=== PATIENT | female | born 1955 | race American Indian/Alaskan Native ===

== ENCOUNTER 2017-09-26 00:50 | Observation (INO) | payer MEDICAID, OTHER ==
--- NOTE | 2017-09-26 00:51 | EDM.PDOC ---
ED HPI GENERAL MEDICAL PROBLEM - General Chief Complaint: General Stated Complaint: IN BY AMBULANCE Time Seen by Provider: 09/26/17 00:49 Source of Information: Reports: Patient, EMS History Limitations: Reports: No Limitations - History of Present Illness INITIAL COMMENTS - FREE TEXT/NARRATIVE: pt states onset left shoulder pain @ 7pm not going away, called EMS gave NTG pain decreased. Left Shoulder Pain Score (Numeric/FACES): 7 - Related Data Allergies Allergy/AdvReac Type Severity Reaction Status Date / Time aspirin Allergy Hives Verified 09/26/17 00:55 codeine Allergy Difficulty Verified 09/26/17 00:55 Swallowing erythromycin base Allergy Hives Verified 09/26/17 00:55 ketorolac tromethamine Allergy Difficulty Verified 09/26/17 00:55 [From Toradol] Swallowing latex Allergy Blisters Verified 09/26/17 00:55 morphine Allergy Difficulty Verified 09/26/17 00:55 Swallowing nabumetone [From Relafen] Allergy Cannot Verified 09/26/17 00:55 Remember sumatriptan [From Imitrex] Allergy Difficulty Verified 09/26/17 00:55 Swallowing sumatriptan succinate Allergy Difficulty Verified 09/26/17 00:55 [From Imitrex] Swallowing Home Meds: Home Meds Multivitamin with Minerals [Multiple Vitamin] 1 tab PO DAILY 10/19/15 [History] atorvaSTATin [Lipitor] 1 tab PO DAILY 10/19/15 [History] traMADol HCl [Ultram] 50 mg PO BID PRN 10/19/15 [History] ALPRAZolam [Xanax] 1 tab PO ASDIRECTED PRN 09/26/17 [History] Past Medical History HEENT History: Reports: Impaired Vision, Other (See Below) Other HEENT History: DENTAL ABSCESS Cardiovascular History: Reports: High Cholesterol, Stents, Other (See Below) Other Cardiovascular History: CAROTID STENTS PLACED Respiratory History: Reports: None Gastrointestinal History: Reports: Gastritis Genitourinary History: Reports: None [employer]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: Musculoskeletal History: Reports: Arthritis, Back Pain, Chronic, Fibromyalgia Other Musculoskeletal History: "SPINAL SPURS" Neurological History: Reports: Migraines, TIA Other Neuro History: 2013 TIA Psychiatric History: Reports: None Endocrine/Metabolic History: Reports: None Other Hematologic History: none Immunologic History: Reports: None Oncologic (Cancer) History: Reports: None Dermatologic History: Reports: Eczema Other Dermatologic History: none - Infectious Disease History Infectious Disease History: Reports: None - Past Surgical History HEENT Surgical History: Reports: Oral Surgery, Other (See Below) Cardiovascular Surgical History: Reports: Carotid Stents GI Surgical History: Reports: Appendectomy, Hernia, Abdominal Female Surgical History: Reports: D&C, Hysterectomy, Salpingo-Oophorectomy, Other (See Below) Musculoskeletal Surgical History: Reports: Shoulder Surgery Social & Family History - Family History Cardiac: Reports: CAD, High Cholesterol, Hypertension : Reports: Nephritis (son) Endocrine/Metabolic: Reports: Diabetes, type II - Tobacco Use Smoking Status *Q: Current Every Day Smoker Years of Tobacco use: 28 Packs/Tins Daily: 0.5 - Caffeine Use Caffeine Use: Reports: Coffee - Recreational Drug Use Recreational Drug Use: No - Living Situation & Occupation Living situation: Reports: with Family Occupation: Employed ED ROS GENERAL - Review of Systems Review Of Systems: ROS reveals no pertinent complaints other than HPI. ED EXAM, GENERAL - Physical Exam Exam: See Below Exam Limited By: No Limitations General Appearance: Alert, WD/WN, Anxious, Mild Distress, Moderate Distress Ears: Hearing Grossly Normal Throat/Mouth: Normal Voice, No Airway Compromise Head: Atraumatic Neck: Non-Tender, Full Range of Motion Respiratory/Chest: No Respiratory Distress Cardiovascular: Regular Rate, Rhythm GI/Abdominal: Soft, Non-Tender Neurological: Alert, Oriented, Normal Cognition, Normal Gait, No Motor/Sensory Deficits Psychiatric: Anxious, Flat Affect Skin Exam: Warm, Dry, Normal Color Lymphatic: No Adenopathy Course - Vital Signs Last Recorded V/S: Last Vital Signs Temp 36.9 C 09/26/17 00:49 Pulse 72 09/26/17 00:49 Resp 19 09/26/17 00:49 BP 137/75 09/26/17 00:49 Pulse Ox 94 L 09/26/17 00:49 - Orders/Labs/Meds Orders: Active Orders 24 hr Category Date Time Status EKG 12 Lead [EKG Documentation Completion] [RC] STAT Care 09/26/17 00:49 Active Labs: Laboratory Tests 09/26/17 09/26/17 Range/Units 00:55 00:55 WBC 8.6 (5.0-10.0) 10^3/uL RBC 4.84 (4.2-5.4) 10^6/uL Hgb 14.5 (12.0-16.0) g/dL Hct 43.9 (37.0-47.0) % MCV 90.7 (80-100) fL MCH 30.0 (27.0-34.0) pg MCHC 33.0 (33.0-35.0) g/dL Plt Count 256 (150-450) 10^3/uL Neut % (Auto) 58.7 (42.2-75.2) % Lymph % (Auto) 29.9 (20.5-50.1) % [place] % (Auto) 7.1 (2-8) % Eos % (Auto) 3.7 H (1.0-3.0) % Baso % (Auto) 0.6 (0.0-1.0) % Sodium 140 (135-145) mmol/L Potassium 3.9 (3.6-5.0) mmol/L Chloride 109 (101-111) mmol/L Carbon Dioxide 26.0 (21.0-31.0) mmol/L Anion Gap 8.9 BUN 13 (7-18) mg/dL Creatinine 0.6 (0.6-1.3) mg/dL Est Cr Clr Drug Dosing 86.10 mL/min Estimated GFR (MDRD) > 60 BUN/Creatinine Ratio 21.66 Glucose 105 (74-105) mg/dL Calcium 8.7 (8.4-10.2) mg/dl Total Bilirubin 0.7 (0.2-1.0) mg/dL AST 34 (10-42) IU/L ALT 28 (10-60) IU/L Alkaline Phosphatase 89 (42-121) IU/L Troponin I < 0.02 (0.00-0.02) ng/ml Total Protein 6.8 (6.7-8.2) g/dl Albumin 3.9 (3.2-5.5) g/dl Globulin 2.9 Albumin/Globulin Ratio 1.34 - Re-Assessments/Exams Free Text/Narrative Re-Assessment/Exam: 09/26/17 02:[address] Nunez who kindly admitted pt to observation. Departure - Departure Time of Disposition: 02:28 Disposition: Refer to Observation Condition: Good Clinical Impression: Angina at rest - Discharge Information Forms: ED Department Discharge - My Orders Last 24 Hours: My Active Orders 09/26/17 00:49 EKG 12 Lead [EKG Documentation Completion] [RC] STAT - Assessment/Plan Last 24 Hours: My Active Orders 09/26/17 00:49 EKG 12 Lead [EKG Documentation Completion] [RC] STAT
[2017-09-26 01:22] LABS: ANION GAP 8.9; CHLORIDE,CL 109 mmol/L (101-111); SODIUM,NA 140 mmol/L (135-145)
[2017-09-26] MEDS ORDERED: ALPRAZolam 0.5 MG Tab PO PRN (03:49)
[2017-09-26] MEDS: traMADol 50 MG Tab PO PRN ×2 (03:58→09:55)
--- NOTE | 2017-09-26 04:21 | PCM.HP ---
H&P History of Present Illness - General Date of Service: 09/26/17 Source of Information: Patient, Provider (ER) - History of Present Illness Initial Comments - Free Text/Narative: The patient is a 62-year-old lady with a history of migraine. She has a history of "mini strokes" according to her although reviewing the chart and the patient had chronic hospital stay in [place] where neurology did not think this was stroke related symptom. The patient has dyslipidemia but no known coronary artery disease. In 2016 the patient had stress test ejection fraction was measured by the computer at 79% there was no focal wall motion abnormality noted. The patient has had chronic pain has been taking tramadol and also taking Xanax for anxiety and sleep. She says she is pretty busy always on the goal. No chest pain or shortness of breath recently. On 25 September the patient had no unusual physical exercise. Around 7 PM on 25 September the patient was watching TV when developed sudden onset of left arm pain. That transferred up to the left shoulder and chest. This was a sudden pain "like hit by a bat". The pain transiently got better with nitroglycerin but returned. The pain is worse with movements. Was shortness of breath with it but that has resolved. She never had similar pain before. No associated headache. She has a history of aspirin allergy resulting in hives, allergic to morphine, fentanyl and codeine resulting in shortness of breath. Left Shoulder Pain Score (Numeric/FACES): 8 - Related Data Allergies/Adverse Reactions: Allergies Allergy/AdvReac Type Severity Reaction Status Date / Time aspirin Allergy Hives Verified 09/26/17 03:08 codeine Allergy Difficulty Verified 09/26/17 03:08 Swallowing erythromycin base Allergy Hives Verified 09/26/17 03:08 ketorolac tromethamine Allergy Difficulty Verified 09/26/17 03:08 [From Toradol] Swallowing latex Allergy Blisters Verified 09/26/17 03:08 morphine Allergy Difficulty Verified 09/26/17 03:08 Swallowing nabumetone [From Relafen] Allergy Cannot Verified 09/26/17 03:08 Remember sumatriptan [From Imitrex] Allergy Difficulty Verified 09/26/17 03:08 Swallowing sumatriptan succinate Allergy Difficulty Verified 09/26/17 03:08 [From Imitrex] Swallowing Home Medications: Home Meds Multivitamin with Minerals [Multiple Vitamin] 1 tab PO DAILY 10/19/15 [History] atorvaSTATin [Lipitor] 1 tab PO DAILY 10/19/15 [History] traMADol HCl [Ultram] 50 mg PO BID PRN 10/19/15 [History] ALPRAZolam [Xanax] 2 tab PO BEDTIME PRN 09/26/17 [History] Past Medical History HEENT History: Reports: Impaired Vision, Other (See Below) Other HEENT History: DENTAL ABSCESS Cardiovascular History: Reports: High Cholesterol Other Cardiovascular History: CAROTID STENTS PLACED Respiratory History: Reports: None Gastrointestinal History: Reports: Gastritis Genitourinary History: Reports: None 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: Musculoskeletal History: Reports: Arthritis, Back Pain, Chronic, Fibromyalgia Other Musculoskeletal History: "SPINAL SPURS" Neurological History: Reports: Migraines, TIA Other Neuro History: 2012 TIA Psychiatric History: Reports: None Endocrine/Metabolic History: Reports: None Other Hematologic History: none Immunologic History: Reports: None Oncologic (Cancer) History: Reports: None Dermatologic History: Reports: Eczema Other Dermatologic History: none - Infectious Disease History Infectious Disease History: Reports: None - Past Surgical History HEENT Surgical History: Reports: Oral Surgery, Other (See Below) Cardiovascular Surgical History: Reports: Carotid Stents GI Surgical History: Reports: Appendectomy, Hernia, Abdominal Female Surgical History: Reports: D&C, Hysterectomy, Salpingo-Oophorectomy, Other (See Below) Musculoskeletal Surgical History: Reports: Shoulder Surgery, Other (See Below) Other Musculoskeletal Surgeries/Procedures:: left foot-plates and screws Social & Family History - Family History Family Medical History: Noncontributory Cardiac: Reports: CAD, High Cholesterol, Hypertension : Reports: Nephritis Endocrine/Metabolic: Reports: Diabetes, type II - Tobacco Use Smoking Status *Q: Current Every Day Smoker Years of Tobacco use: 28 Packs/Tins Daily: 0.5 - Caffeine Use Caffeine Use: Reports: Coffee - Recreational Drug Use Recreational Drug Use: No - Living Situation & Occupation Living situation: Reports: with Family Occupation: Employed H&P Review of Systems - Review of Systems: Review Of Systems: See Below General: Denies: Fever Pulmonary: Reports: Shortness of Breath. Denies: Wheezing Cardiovascular: Reports: Chest Pain Gastrointestinal: Denies: Abdominal Pain Genitourinary: Denies: Dysuria Musculoskeletal: Reports: Shoulder Pain (left), Arm Pain (Left). Denies: Neck Pain, Leg Pain, Joint Swelling Psychiatric: Denies: Confusion Exam - Exam Exam: See Below - Vital Signs Vital Signs: Last Vital Signs Temp 36.5 C 09/26/17 02:46 Pulse 72 09/26/17 02:46 Resp 18 09/26/17 02:46 BP 123/63 09/26/17 02:46 Pulse Ox 98 09/26/17 02:46 Weight: 63.503 kg - Exam General: Alert, Oriented Neck: Supple Lungs: Clear to Auscultation, Normal Respiratory Effort Cardiovascular: Regular Rate, Regular Rhythm GI/Abdominal Exam: Normal Bowel Sounds, Soft, Non-Tender Extremities: No Pedal Edema, Arm Pain (Painful with movement), Limited Range of Motion (Left shoulder painful with movement) Skin: Warm, Dry Neurological: Strength Equal Bilateral Neuro Extensive - Mental Status: Alert, Oriented x3 Psychiatric: Alert, Normal Affect, Normal Mood - Patient Data Result Diagrams: 09/26/17 00:55 09/26/17 00:55 Imaging Impressions Last 24 hrs: Chest x-ray per my reading shows no infiltrate, no apparent clavicular fracture or rib fracture. EKG INTERPRETATION Rhythm: NSR *Q Meaningful Use (ADM) - VTE *Q VTE Criteria *Q: - Stroke *Q Stroke Criteria *Q: - AMI *Q AMI Criteria *Q: - Problem List (1) Dyslipidemia SNOMED Code(s): 559580837 ICD Code: E78.5 - HYPERLIPIDEMIA, UNSPECIFIED Status: Acute Current Visit : Yes (2) Anxiety SNOMED Code(s): 41208299 ICD Code: F41.9 - ANXIETY DISORDER, UNSPECIFIED Status: Acute Current Visit: Yes (3) Chronic pain SNOMED Code(s): 47610572 ICD Code: G89.29 - OTHER CHRONIC PAIN Status: Acute Current Visit: Yes (4) Atypical chest pain SNOMED Code(s): 469534892 ICD Code: R07.89 - OTHER CHEST PAIN Status: Acute Current Visit: No Problem List Initiated/Reviewed/Updated: Yes Orders Last 24hrs: Active Orders 24 hr Category Date Time Status Telemetry Monitoring [Cardiac Monitoring] [RC] . Care 09/26/17 03:52 Ordered DIRECTED TROPONIN I [CHEM] Timed Lab 09/26/17 07:00 Ordered ALPRAZolam [Xanax] Med 09/26/17 03:49 Ordered 1 mg PO TID PRN Multivitamin with Minerals [Multiple Vitamin] Med 09/26/17 09:00 Ordered 1 tab PO DAILY atorvaSTATin [Lipitor] Med 09/26/17 09:00 Ordered 1 tab PO DAILY traMADol [Ultram] Med 09/26/17 03:47 Ordered 50 mg PO Q6H PRN Medication Orders Alprazolam (Xanax) 1 mg PO TID PRN PRN Reason: Anxiety Last Admin: 09/26/17 03:59 Dose: 1 mg Atorvastatin Calcium (Lipitor) 10 mg PO DAILY [facility] Multivitamins (Thera) 1 each PO DAILY [facility] Tramadol HCl (Ultram) 50 mg PO Q6H PRN PRN Reason: Pain Last Admin: 09/26/17 03:58 Dose: 50 mg Assessment/Plan Comment:: The patient is a 62-year-old lady with cardiac risk factors of being postmenopausal female with smoking, dyslipidemia. #1 The patient presented with sudden onset of left sided arm shoulder and chest pain. The pain is clearly reproducible with movements of the left arm. This is most likely musculoskeletal pain, possible radiculopathy. The patient has significant allergies to pain medications. Continue tramadol. Further differential diagnosis includes possible cardiac causes given her risk factors. We'll repeat troponin, monitor on telemetry. #2 dyslipidemia Continue to treat with statin #3 history of anxiety Continue Xanax #4 DVT prophylaxis Will be with subcutaneous heparin
[2017-09-26] MEDS ORDERED: Sodium Chloride 0.9% 10 ML Syringe FLUSH PRN (04:34)
[2017-09-26] MEDS ORDERED: Ondansetron 4 MG/2 ML SDV IVPUSH PRN (04:34)
[2017-09-26] MEDS ORDERED: Heparin Sodium 5,000 Units/ML Vial SUBCUT SCH (06:00)
[2017-09-26] MEDS ORDERED: Multivitamins,Therapeutic Tab PO SCH (09:00)
[2017-09-26] MEDS ORDERED: Nicotine 14 MG/24 Hr Patch TRDERM SCH (09:00)
[2017-09-26] MEDS ORDERED: atorvaSTATin 10 MG Tab PO SCH (09:00)
[2017-09-26] MEDS ORDERED: Iopamidol 755 Mg/ML 100 ML Bottle IVPUSH ONE (11:13)
--- NOTE | 2017-09-26 12:00 | CT ---
Clinical history: 62-year-old 140 pounds hospitalized female smoker with "neck stents" complaining of left chest pain. Rule out pulmonary embolism/infarct or other abnormality. Scan technique: Volume acquisition of data from the chest (bony thorax, lungs and mediastinum) obtain ed during the intravenous administration 58 mL nonionic Isovue 370 contrast (4.5 cc/s via injector) w hile patient was lying supine on the Siemens multislice scanner [facility]. Some late extravasation occurred in the last 10 seconds. All data archived in the PACS sy stem for storage, reformatting axial/sagittal/coronal planes and study (lung/mediastinal windows). Interpretation: 1. Symmetric prominence of proximal pulmonary artery segments, bilateral peribronchial "cuffing", pro bable cysts scattered throughout both lung verma and some scattered small pleural parenchymal scars all consistent with early COPD. 2. *No sign of intraluminal filling defect or thrombus; no focal lobar oligemia; no peripheral pleura l-based wedge shaped infarcts. 3. Normal cardiac silhouette. No pericardial effusion, cephalization of vascular flow, signs of alveo lar edema or pleural effusion. 4. Calcifications normal caliber aorta. No sign of aneurysm or dissection. 5. No lung mass, definite hilar/mediastinal lymphadenopathy or focal lobar pneumonia. 6. No atelectasis/collapse. No rib fracture. No pneumothorax. 7. Multilevel mid thoracic disc disease with associated hypertrophic arthritic changes of the spine. Radicular pain? 8. Gallbladder, liver, stomach, spleen, pancreas and adrenal glands unremarkable (large 3 cm diameter cyst lateral midpole left kidney). Conclusion: Abnormalities of the spine (above). Signs of reactive airway disease or early COPD. Left renal cyst. No heart failure, malignancy, lobar pneumonia or pulmonary embolism/infarct.
[2017-09-26 12:06] VITALS: BP 116/63
--- NOTE | 2017-09-26 13:05 | PCM.DCSUM1 ---
Discharge Summary - Hospital Course Free Text/Narrative:: The patient is a 62-year-old lady who presented with left-sided chest pain, shoulder pain, arm pain. The patient was admitted and followed on telemetry which showed no significant arrhythmia. Troponins remained negative. CT of the chest showed a normal pulmonary embolism, no large vessel abnormalities. The pain was clearly reproducible with movements. This is most likely musculoskeletal or possibly radicular in origin. CT was concerning for COPD. Discussed smoking cessation. She does not want to quit. The patient's pain is improved be discharged in a stable condition. She will follow-up with the primary care physician in a few days. She has tramadol at home to take. She has allergy to aspirin but was not started. She will continue medications for anxiety and dyslipidemia. - Discharge Data Discharge Date: 09/26/17 Discharge Disposition: Home, Self-Care 01 Condition: Stable - Discharge Diagnosis/Problem(s) (1) Dyslipidemia SNOMED Code(s): 439801414 ICD Code: E78.5 - HYPERLIPIDEMIA, UNSPECIFIED Status: Acute Current Visit : Yes (2) Anxiety SNOMED Code(s): 03624548 ICD Code: F41.9 - ANXIETY DISORDER, UNSPECIFIED Status: Acute Current Visit: Yes (3) Chronic pain SNOMED Code(s): 81064304 ICD Code: G89.29 - OTHER CHRONIC PAIN Status: Acute Current Visit: Yes (4) Atypical chest pain SNOMED Code(s): 334462339 ICD Code: R07.89 - OTHER CHEST PAIN Status: Acute Current Visit: No - Patient Instructions Diet: Heart Healthy Diet Activity: As Tolerated - Discharge Plan Home Medications: Home Meds Multivitamin with Minerals [Multiple Vitamin] 1 tab PO DAILY 10/19/15 [History] atorvaSTATin [Lipitor] 1 tab PO DAILY 10/19/15 [History] traMADol HCl [Ultram] 50 mg PO BID PRN 10/19/15 [History] ALPRAZolam [Xanax] 2 tab PO BEDTIME PRN 09/26/17 [History] Patient Handouts: Muscle Cramps and Spasms, [id number], Chest Pain Observation Referrals: PCP,Unobtain [Primary Care Provider] - (follow up in 2-3 days ) - Discharge Summary/Plan Comment DC Time >30 min.: No - General Info Date of Service: 09/26/17 - Review of Systems General: Denies: Fever Pulmonary: Denies: Shortness of Breath Cardiovascular: Reports: Chest Pain (Left upper shoulder area) Gastrointestinal: Denies: Abdominal Pain Genitourinary: Denies: Dysuria - Patient Data Vitals - Most Recent: Last Vital Signs Temp 36.7 C 09/26/17 12:05 Pulse 64 09/26/17 12:05 Resp 20 09/26/17 12:05 BP 116/63 09/26/17 12:05 Pulse Ox 97 09/26/17 12:05 Weight - Most Recent: 63.503 kg I&O - Last 24 hours: Intake & Output 09/25/17 09/26/17 09/26/17 22:59 06:59 14:59 Intake Total 120 Output Total 450 Balance -330 Lab Results - Last 24 hrs: Laboratory Results - last 24 hr 09/26/17 Range/Units 06:20 Troponin I < 0.02 (0.00-0.02) ng/ml Med Orders - Current: Current Medications Alprazolam (Xanax) 1 mg PO TID PRN PRN Reason: Anxiety Last Admin: 09/26/17 03:59 Dose: 1 mg Atorvastatin Calcium (Lipitor) 10 mg PO DAILY [facility] Last Admin: 09/26/17 08:43 Dose: 10 mg Heparin Sodium (Porcine) (Heparin Sodium) 5,000 units SUBCUT Q8HR [facility] Last Admin: 09/26/17 06:16 Dose: 5,000 units Multivitamins (Thera) 1 each PO DAILY [facility] Last Admin: 09/26/17 08:44 Dose: 1 each Nicotine (Habitrol) 14 mg TRDERM DAILY [facility] Last Admin: 09/26/17 08:44 Dose: Not Given Ondansetron HCl (Zofran) 4 mg IVPUSH Q6H PRN PRN Reason: Nausea/Vomiting Sodium Chloride (Saline Flush) 10 ml FLUSH ASDIRECTED PRN PRN Reason: Keep Vein Open Tramadol HCl (Ultram) 50 mg PO Q6H PRN PRN Reason: Pain Last Admin: 09/26/17 09:55 Dose: 50 mg Discontinued Medications Iopamidol (Isovue-370 (76%)) 100 ml IVPUSH ONETIME ONE Stop: 09/26/17 11:14 - Exam General: Reports: Alert, Oriented Neck: Reports: Supple Lungs: Reports: Clear to Auscultation, Normal Respiratory Effort Cardiovascular: Reports: Regular Rate, Regular Rhythm GI/Abdominal Exam: Normal Bowel Sounds, Soft, Non-Tender Extremities: No Pedal Edema *Q Meaningful Use (DIS) - VTE *Q VTE Criteria *Q: - Stroke *Q Stroke Criteria *Q: - AMI *Q AMI Criteria *Q:
--- NOTE | 2017-09-29 13:13 | EKG ---
09/26/2017 - LES KRAFT - FINDINGS: EKG per my reading shows sinus rhythm. [facility] /[id number]
== END 2017-09-26 13:50 | disposition home or self-care (01) ==
LOC: DL.ED 00:50 → UNDOADMOB 02:40 → DL.MS 02:40
PROVIDERS: ADMIT Internal Medicine; ATTEND Internal Medicine
DX: E78.5 Hyperlipidemia, unspecified (principal); F41.9 Anxiety disorder, unspecified; R07.9 Chest pain, unspecified; M25.512 Pain in left shoulder; M79.602 Pain in left arm; G43.909 Migraine, unspecified, not intractable, without status migrainosus; E78.00 Pure hypercholesterolemia, unspecified; M19.90 Unspecified osteoarthritis, unspecified site; M79.7 Fibromyalgia; F17.210 Nicotine dependence, cigarettes, uncomplicated; G89.29 Other chronic pain; M54.9 Dorsalgia, unspecified; Z86.73 Personal history of transient ischemic attack (TIA), and cerebral infarction without residual deficits; Z79.899 Other long term (current) drug therapy; Z88.5 Allergy status to narcotic agent; Z88.8 Allergy status to other drugs, medicaments and biological substances; Z91.040 Latex allergy status; Z83.3 Family history of diabetes mellitus; Z82.49 Family history of ischemic heart disease and other diseases of the circulatory system; Z95.820 Peripheral vascular angioplasty status with implants and grafts; Z90.49 Acquired absence of other specified parts of digestive tract; Z98.890 Other specified postprocedural states
CPT/HCPCS: 36415; 71045; 71260; 80053; 84484; 85025; 87081; 87430; 93005; 96372; 99285; A9270; G0378; J1644; Q9967

== ENCOUNTER 2019-08-12 20:26 | Emergency (ER) | payer OTHER ==
[2019-08-12] MEDS ORDERED: ALPRAZolam 0.5 MG Tab PO ONE (20:27)
[2019-08-12 20:35] VITALS: BP 135/74; PULSE 69
[2019-08-12] MEDS ORDERED: ALPRAZolam 0.25 MG Tab PO ONE (21:15)
--- NOTE | 2019-08-12 21:22 | EDM.PDOC ---
ED HPI GENERAL MEDICAL PROBLEM - General Chief Complaint: Upper Extremity Injury/Pain Stated Complaint: AMBULANCE Time Seen by Provider: 08/12/19 20:35 Source of Information: Reports: Patient History Limitations: Reports: No Limitations - History of Present Illness INITIAL COMMENTS - FREE TEXT/NARRATIVE: ED via [facility] with report of pain to right elbow, Putting up garland, standing on counter and fell , Did not hit head no loss of consciousness. Multiple drug allergies, nothing for pain enroute. Bruising, no gross deformity. Splinted on pillow Right Arm Pain Score (Numeric/FACES): 8 - Related Data Allergies Allergy/AdvReac Type Severity Reaction Status Date / Time aspirin Allergy Hives Verified 08/12/19 20:25 codeine Allergy Difficulty Verified 08/12/19 20:25 Swallowing erythromycin base Allergy Hives Verified 08/12/19 20:25 ketorolac tromethamine Allergy Difficulty Verified 08/12/19 20:25 [From Toradol] Swallowing latex Allergy Blisters Verified 08/12/19 20:25 morphine Allergy Difficulty Verified 08/12/19 20:25 Swallowing nabumetone [From Relafen] Allergy Cannot Verified 08/12/19 20:25 Remember sumatriptan [From Imitrex] Allergy Difficulty Verified 08/12/19 20:25 Swallowing sumatriptan succinate Allergy Difficulty Verified 08/12/19 20:25 [From Imitrex] Swallowing Home Meds: Home Meds Multivitamin with Minerals [Multiple Vitamin] 1 tab PO DAILY 10/19/15 [History] atorvaSTATin [Lipitor] 1 tab PO DAILY 10/19/15 [History] traMADol HCl [Ultram] 50 mg PO BID PRN 10/19/15 [History] ALPRAZolam [Xanax] 2 tab PO BEDTIME PRN 09/26/17 [History] Past Medical History HEENT History: Reports: Impaired Vision, Other (See Below) Other HEENT History: DENTAL ABSCESS Cardiovascular History: Reports: High Cholesterol Other Cardiovascular History: CAROTID STENTS PLACED Respiratory History: Reports: None Gastrointestinal History: Reports: Gastritis Genitourinary History: Reports: None 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: Musculoskeletal History: Reports: Arthritis, Back Pain, Chronic, Fibromyalgia Other Musculoskeletal History: "SPINAL SPURS" Neurological History: Reports: Migraines, TIA Other Neuro History: 2013 TIA Psychiatric History: Reports: None Endocrine/Metabolic History: Reports: None Other Hematologic History: none Immunologic History: Reports: None Oncologic (Cancer) History: Reports: None Dermatologic History: Reports: Eczema Other Dermatologic History: none - Infectious Disease History Infectious Disease History: Reports: None - Past Surgical History HEENT Surgical History: Reports: Oral Surgery, Other (See Below) Cardiovascular Surgical History: Reports: Carotid Stents GI Surgical History: Reports: Appendectomy, Hernia, Abdominal Female Surgical History: Reports: D&C, Hysterectomy, Salpingo-Oophorectomy, Other (See Below) Musculoskeletal Surgical History: Reports: Shoulder Surgery, Other (See Below) Other Musculoskeletal Surgeries/Procedures:: left foot-plates and screws Social & Family History - Family History Family Medical History: Noncontributory Cardiac: Reports: CAD, High Cholesterol, Hypertension : Reports: Nephritis Endocrine/Metabolic: Reports: Diabetes, type II - Tobacco Use Smoking Status *Q: Current Every Day Smoker Years of Tobacco use: 42 Packs/Tins Daily: 1 - Caffeine Use Caffeine Use: Reports: Coffee, Soda, Tea - Recreational Drug Use Recreational Drug Use: No - Living Situation & Occupation Living situation: Reports: with Family Occupation: Employed Review of Systems - Review of Systems Review Of Systems: Comprehensive ROS is negative, except as noted in HPI. ED EXAM, GENERAL - Physical Exam Exam: See Below Exam Limited By: No Limitations General Appearance: Alert, Anxious, Mild Distress Eye Exam: Bilateral Eye: EOMI, PERRL Ears: Normal External Exam, Hearing Grossly Normal Nose: Normal Inspection Throat/Mouth: Normal Inspection Head: Atraumatic, Normocephalic Neck: Normal Inspection Respiratory/Chest: No Respiratory Distress Peripheral Pulses: 3+: Carotid (L), Carotid (R) GI/Abdominal: Soft Back Exam: Normal Inspection Extremities: Joint Swelling (right elbow contusion, limited ROM extension and external rotation) Neurological: Alert, Oriented, Normal Cognition, No Motor/Sensory Deficits Psychiatric: Normal Affect Skin Exam: Warm, Dry, Intact, Normal Color Course - Vital Signs Last Recorded V/S: Last Vital Signs Temp 98.3 F 08/12/19 20:34 Pulse 69 08/12/19 20:34 Resp 16 08/12/19 20:34 BP 135/74 08/12/19 20:34 Pulse Ox 96 08/12/19 20:34 - Orders/Labs/Meds Orders: Active Orders 24 hr Category Date Time Status Elbow 2V Rt [CR] Urgent Exams 08/12/19 20:34 Taken Meds: Medications Discontinued Medications Generic Name Dose Route Start Last Admin Trade Name Serg PRN Reason Stop Dose Admin Alprazolam 0.25 mg 08/12/19 21:15 08/12/19 21:30 Xanax PO 08/12/19 21:16 0.25 mg ONETIME ONE Administration Alprazolam Confirm 08/12/19 21:24 08/12/19 21:30 Xanax Administered 08/12/19 21:25 Not Given Dose 0.5 mg .ROUTE .STK-MED ONE Departure - Departure Time of Disposition: 21:17 Disposition: Home, Self-Care 01 Condition: Good Clinical Impression: Contusion of right elbow, initial encounter Fall Qualifiers: Encounter type: initial encounter Qualified Code(s): W19.XXXA - Unspecified fall, initial encounter - Discharge Information *PRESCRIPTION DRUG MONITORING PROGRAM REVIEWED*: No *COPY OF PRESCRIPTION DRUG MONITORING REPORT IN PATIENT MARSHA: No Instructions: RICE Therapy for Routine Care of Injuries, [id number], Elbow Contusion, [id number] Forms: ED Department Discharge Additional Instructions: sling rest ice recheck next week urgent follow up if increased swelling tingling of extremity tylenol 650mg every 4 hours as needed for discomfort - My Orders Last 24 Hours: My Active Orders 08/12/19 20:34 Elbow 2V Rt [CR] Urgent - Assessment/Plan Last 24 Hours: My Active Orders 08/12/19 20:34 Elbow 2V Rt [CR] Urgent
[2019-08-12] MEDS ORDERED: ALPRAZolam 0.5 MG Tab ONE (21:24)
== END 2019-08-12 21:32 | disposition home or self-care (01) ==
LOC: DL.ED 20:26
DX: S50.01XA Contusion of right elbow, initial encounter (principal); E78.00 Pure hypercholesterolemia, unspecified; M19.90 Unspecified osteoarthritis, unspecified site; Z86.73 Personal history of transient ischemic attack (TIA), and cerebral infarction without residual deficits; F17.210 Nicotine dependence, cigarettes, uncomplicated; Z88.8 Allergy status to other drugs, medicaments and biological substances; Z88.5 Allergy status to narcotic agent; Z88.1 Allergy status to other antibiotic agents; Z91.040 Latex allergy status; Z79.899 Other long term (current) drug therapy; W19.XXXA Unspecified fall, initial encounter
CPT/HCPCS: 73070; 99284; A9270

== ENCOUNTER 2020-05-22 13:20 | Emergency (ER) | payer OTHER ==
[2020-05-22] MEDS ORDERED: Sodium Chloride 0.9% 10 ML Syringe FLUSH PRN (13:32)
--- NOTE | 2020-05-22 13:40 | EDM.PDOC ---
ED HPI GENERAL MEDICAL PROBLEM - General Chief Complaint: Chest Pain Stated Complaint: IN BY AMBULANCE Time Seen by Provider: 05/22/20 13:25 Source of Information: Reports: Patient History Limitations: Reports: No Limitations - History of Present Illness INITIAL COMMENTS - FREE TEXT/NARRATIVE: Patient comes emergency department today with complaints of chest pain and some left-sided face pain. This patient for the past 2 days has had pain on the left side of her face. She went to the dentist yesterday to make sure that she did not have any dental problems and they said everything looked okay. She really has no paresthesias of the left side of the face. No drooling. No visual acuity changes. No headache. No rash or lesions on her face. About 4:00 this morning she started having sharp shooting stabbing intermittent left anterior lower chest pain. Pain gets worse with deep breath cough and movement. She has no shortness of breath. No cough or congestion. No fever no chills. No weakness dizziness lightheadedness. Innovation pain nausea or vomiting. No weakness dizziness lightheadedness. No palpitations. No cough or congestion. No hematuria dysuria or urinary frequency. No diarrhea. She has not tried anything for the pain. 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 Chest Pain Score (Numeric/FACES): 8 - Related Data Allergies Allergy/AdvReac Type Severity Reaction Status Date / Time aspirin Allergy Hives Verified 05/22/20 13:59 codeine Allergy Difficulty Verified 05/22/20 13:59 Swallowing erythromycin base Allergy Hives Verified 05/22/20 13:59 ketorolac tromethamine Allergy Difficulty Verified 05/22/20 13:59 [From Toradol] Swallowing latex Allergy Blisters Verified 05/22/20 13:59 morphine Allergy Difficulty Verified 05/22/20 13:59 Swallowing nabumetone [From Relafen] Allergy Cannot Verified 05/22/20 13:59 Remember sumatriptan [From Imitrex] Allergy Difficulty Verified 05/22/20 13:59 Swallowing sumatriptan succinate Allergy Difficulty Verified 05/22/20 13:59 [From Imitrex] Swallowing Home Meds: Home Meds Loratadine [Claritin] 10 mg PO DAILY 05/22/20 [History] Naproxen Sodium [Aleve] 440 mg PO DAILY 05/22/20 [History] Past Medical History HEENT History: Reports: Impaired Vision, Other (See Below) Other HEENT History: DENTAL ABSCESS Cardiovascular History: Reports: High Cholesterol Other Cardiovascular History: CAROTID STENTS PLACED Respiratory History: Reports: None Gastrointestinal History: Reports: Gastritis Genitourinary History: Reports: None 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: Musculoskeletal History: Reports: Arthritis, Back Pain, Chronic, Fibromyalgia Other Musculoskeletal History: "SPINAL SPURS" Neurological History: Reports: Migraines, TIA Other Neuro History: 2013 TIA Psychiatric History: Reports: None Endocrine/Metabolic History: Reports: None Other Hematologic History: none Immunologic History: Reports: None Oncologic (Cancer) History: Reports: None Dermatologic History: Reports: Eczema Other Dermatologic History: none - Infectious Disease History Infectious Disease History: Reports: None - Past Surgical History HEENT Surgical History: Reports: Oral Surgery, Other (See Below) Cardiovascular Surgical History: Reports: Carotid Stents GI Surgical History: Reports: Appendectomy, Hernia, Abdominal Female Surgical History: Reports: D&C, Hysterectomy, Salpingo-Oophorectomy, Other (See Below) Musculoskeletal Surgical History: Reports: Shoulder Surgery, Other (See Below) Other Musculoskeletal Surgeries/Procedures:: left foot-plates and screws Social & Family History - Family History Family Medical History: Noncontributory Cardiac: Reports: CAD, High Cholesterol, Hypertension : Reports: Nephritis Endocrine/Metabolic: Reports: Diabetes, type II - Caffeine Use Caffeine Use: Reports: Coffee, Soda, Tea - Living Situation & Occupation Living situation: Reports: with Family Occupation: Employed ED ROS GENERAL - Review of Systems Review Of Systems: Comprehensive ROS is negative, except as noted in HPI. ED EXAM, GENERAL - Physical Exam Exam: See Below Exam Limited By: No Limitations General Appearance: Alert, WD/WN, No Apparent Distress Eye Exam: Bilateral Eye: EOMI, PERRL Ears: Normal External Exam, Normal Canal, Hearing Grossly Normal, Normal TMs Nose: Normal Inspection, Normal Mucosa, No Blood Throat/Mouth: Normal Inspection, Normal Lips, Normal Teeth, Normal Gums, Normal Oropharynx, Normal Voice, No Airway Compromise Head: Atraumatic, Normocephalic Neck: Normal Inspection, Supple, Non-Tender, Full Range of Motion Respiratory/Chest: No Respiratory Distress, Lungs Clear, Normal Breath Sounds, No Accessory Muscle Use, Other (She does have some tenderness on the left anterior chest midclavicular line about the seventh or eighth intercostal region. With even the slightest sensation she jumps and screams in pain. There is no bruising swelling ecchymosis. No subcutaneous emphysema or signs of trauma.) Cardiovascular: Normal Peripheral Pulses, Regular Rate, Rhythm, No Murmur Peripheral Pulses: 2+: Radial (L), Radial (R), Posterior Tibial (L), Posterior Tibial (R), Dorsalis Pedis (L), Dorsalis Pedis (R) GI/Abdominal: Normal Bowel Sounds, Soft, Non-Tender, No Distention (Female) Exam: Deferred Rectal (Female) Exam: Deferred Back Exam: Normal Inspection, Full Range of Motion Extremities: Normal Inspection, Normal Range of Motion, Non-Tender, No Pedal Edema, Normal Capillary Refill Neurological: Alert, Oriented, CN II-XII Intact, Normal Cognition, Normal Gait, Normal Reflexes, No Motor/Sensory Deficits Psychiatric: Normal Affect, Normal Mood Skin Exam: Warm, Dry, Intact, Normal Color, No Rash EKG INTERPRETATION EKG Date: 05/22/20 Time: 13:28 Rhythm: NSR Rate (Beats/Min): 63 [place]: Normal P-Wave: Present QRS: Normal ST-T: Normal QT: Normal Comparison: No Change Course - Vital Signs Last Recorded V/S: Last Vital Signs Temp 97.8 F 05/22/20 13:33 Pulse 65 05/22/20 14:03 Resp 18 05/22/20 13:33 BP 112/55 L 05/22/20 14:03 Pulse Ox 96 05/22/20 13:33 - Orders/Labs/Meds Orders: Active Orders 24 hr Category Date Time Status Peripheral IV Insertion Adult [OM.PC] Stat Oth 05/22/20 13:32 Ordered Labs: Laboratory Tests 05/22/20 05/22/20 05/22/20 Range/Units 13:40 13:40 13:40 WBC 12.1 H (5.0-10.0) 10^3/uL RBC 5.10 (4.2-5.4) 10^6/uL Hgb 15.4 (12.0-16.0) g/dL Hct 45.4 (37.0-47.0) % MCV 89.0 (80-100) fL MCH 30.2 (27.0-34.0) pg MCHC 33.9 (33.0-35.0) g/dL Plt Count 294 (150-450) 10^3/uL Neut % (Auto) 65.7 (42.2-75.2) % Lymph % (Auto) 26.3 (20.5-50.1) % [place] % (Auto) 5.5 (2-8) % Eos % (Auto) 2.1 (1.0-3.0) % Baso % (Auto) 0.4 (0.0-1.0) % PT 9.5 (9.0-12.0) SEC INR 1.0 (0.9-1.2) APTT 26.0 (22.0-34.0) SEC Sodium 141 (136-145) mmol/L Potassium 3.8 (3.5-5.1) mmol/L Chloride 106 (98-107) mmol/L Carbon Dioxide 25 (21-32) mmol/L Anion Gap 13.8 H (7-13) mEq/L BUN 9 (7-18) mg/dL Creatinine 0.79 (0.55-1.02) mg/dL Est Cr Clr Drug Dosing 62.94 mL/min Estimated GFR (MDRD) > 60 BUN/Creatinine Ratio 11.4 (No establ ref range) Glucose 83 (74-99) mg/dL Calcium 9.1 (8.5-10.1) mg/dL Total Bilirubin 0.8 (0.2-1.0) mg/dL AST 14 L (15-37) U/L ALT 18 (14-59) U/L Alkaline Phosphatase 77 (46-116) U/L Troponin I < 0.017 (0.000-0.056) ng/mL Total Protein 7.5 (6.4-8.2) g/dL Albumin 3.8 (3.4-5.0) g/dL Globulin 3.7 Albumin/Globulin Ratio 1.0 Meds: Medications Discontinued Medications Generic Name Dose Route Start Last Admin Trade Name Freq PRN Reason Stop Dose Admin Al Hydroxide/Mg Hydroxide 30 ml 05/22/20 14:27 05/22/20 14:38 Gi Cocktail PO 05/22/20 14:28 Not Given ONETIME ONE Nitroglycerin 0.4 mg 05/22/20 13:43 05/22/20 13:48 Nitrostat SL 05/22/20 13:44 0.4 mg ONETIME ONE Administration Ondansetron HCl 4 mg 05/22/20 13:42 05/22/20 13:48 Zofran IV 05/22/20 13:43 4 mg ONETIME ONE Administration Sodium Chloride 10 ml 05/22/20 13:32 05/22/20 13:51 Saline Flush FLUSH 10 ml ASDIRECTED PRN Administration Keep Vein Open - Radiology Interpretation Free Text/Narrative:: Hest x-ray with some chronic pulmonary fibrosis changes but nothing acute per radiology. - Re-Assessments/Exams Free Text/Narrative Re-Assessment/Exam: 05/22/20 Patient did not receive any aspirin as she is allergic to it. Nitroglycerin with no change in her symptoms. Refused the GI cocktail. Laboratory evaluation is rather unremarkable. She wonders if she is not having a little flare of her fibromyalgia which is after she thinks about it for a while very similar to her typical flares of fibromyalgia. Not sure what is causing the achiness or pain to the left side of his her face. There is nothing in the oral concerning for pathology. There is no signs of herpes zoster lesions on the face. There is no White's palsy. She really does not have the presentation type symptoms of early herpes zoster. Chest pain is musculoskeletal chest wall pain. She can use Tylenol for pain. Recheck if anything new or worse. She is understanding this and her questions are answered. Departure - Departure Time of Disposition: 15:00 Disposition: Home, Self-Care 01 Clinical Impression: Chest wall pain, Facial pain, History of fibromyalgia Instructions: Chest Wall Pain, [id number], Nonspecific Chest Pain, Adult, [id number] Referrals: Sanket Sullivan [Primary Care Provider] - Forms: ED Department Discharge Additional Instructions: Tylenol as needed for the chest pain. Return to the ED if new or worsening symptoms Follow up with PCP. Sepsis Event Note (ED) - Evaluation Sepsis Screening Result: No Definite Risk - Focused Exam Vital Signs: Vital Signs Temp Pulse Resp BP BP BP Pulse Ox 05/22/20 14:03 65 112/55 L 05/22/20 13:54 104/56 L 05/22/20 13:52 74/56 L 05/22/20 13:48 150/58 H 05/22/20 13:33 97.8 F 63 18 132/67 96 - My Orders Last 24 Hours: My Active Orders 05/22/20 13:32 Peripheral IV Insertion Adult [OM.PC] Stat - Assessment/Plan Last 24 Hours: My Active Orders 05/22/20 13:32 Peripheral IV Insertion Adult [OM.PC] Stat
[2020-05-22] MEDS ORDERED: Ondansetron 4 MG/2 ML SDV IV ONE (13:42)
[2020-05-22] MEDS ORDERED: Nitroglycerin 0.4 MG Tab.SL SL ONE (13:43)
[2020-05-22 14:04] VITALS: BP 112/55; PULSE 65
[2020-05-22 14:09] LABS: ANION GAP 13.8 mEq/L (7-13); CHLORIDE,CL 106 mmol/L (98-107); SODIUM,NA 141 mmol/L (136-145)
[2020-05-22] MEDS ORDERED: GI Cocktail Oral Solution 30 ML PO ONE (14:27)
--- NOTE | 2020-05-22 15:31 | CR ---
EXAMINATION: Chest 1V Frontal SEX: Female AGE: 65 years CLINICAL HISTORY: 65-year-old female complaining of chest pain. Comparison exams 26 September 2017 and 09 June 2016. Interpretation (upright AP portable chest): 1. Surgical clips soft tissues right side of the neck. Gown snaps. External night monitor leads. 2. 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 3. Normal cardiac silhouette (size and configuration). No pulmonary vascular congestion, cephalization of flow, alveolar edema or dependent pleural fluid accumulation (effusions). 4. No new lung mass, hilar lymphadenopathy or focal lobar pneumonia. 5. No bronchial reactive changes or air trapping. 6. No pneumothorax or pneumomediastinum. No free subdiaphragmatic air. CONCLUSION: No acute new cardiopulmonary abnormality.
== END 2020-05-22 15:36 | disposition home or self-care (01) ==
LOC: DL.ED 13:20
DX: R07.89 Other chest pain (principal); R51 Headache; M19.90 Unspecified osteoarthritis, unspecified site; Z87.39 Personal history of other diseases of the musculoskeletal system and connective tissue; Z88.5 Allergy status to narcotic agent; Z88.6 Allergy status to analgesic agent; Z91.040 Latex allergy status; Z88.8 Allergy status to other drugs, medicaments and biological substances; Z86.73 Personal history of transient ischemic attack (TIA), and cerebral infarction without residual deficits
CPT/HCPCS: 36415; 71045; 80053; 84484; 85025; 85610; 85730; 93005; 96374; 99285; A9270; J2405; 99283

== ENCOUNTER 2021-01-12 16:39 | Emergency (ER) | payer OTHER ==
[2021-01-12] MEDS ORDERED: Dexamethasone 4 MG Tab PO ONE ×2 (16:40→18:20)
[2021-01-12 17:06] VITALS: BP 81/57; PULSE 80
--- NOTE | 2021-01-12 17:29 | EDM.PDOC ---
ED HPI GENERAL MEDICAL PROBLEM - General Chief Complaint: Lower Extremity Injury/Pain Stated Complaint: BROKE RIGHT FOOT, PER PT Time Seen by Provider: 01/12/21 17:24 Source of Information: Reports: Patient, RN, RN Notes Reviewed History Limitations: Reports: No Limitations - History of Present Illness INITIAL COMMENTS - FREE TEXT/NARRATIVE: Pt presents to ER with c/o right foot pain without any specific injury. Pt states she had no pain, then went to the store today, and while walking around the midfoot became very painful and feels hot. Denies fall, blunt impact, twisting, or any known specific injury. Denies fever, chills, or any other symptoms. No Hx of gout or autoimmune arthropathy. Onset: Today, Sudden Duration: Constant Location: Reports: Lower Extremity, Right Quality: Reports: Ache, Throbbing Severity: Severe Improves with: Reports: Immobilization Worsens with: Reports: Movement (And weight bearing) Associated Symptoms: Reports: No Other Symptoms Right Foot Pain Score (Numeric/FACES): 8 - Related Data Allergies Allergy/AdvReac Type Severity Reaction Status Date / Time aspirin Allergy Hives Verified 09/14/20 10:00 codeine Allergy Difficulty Verified 09/14/20 10:00 Swallowing erythromycin base Allergy Hives Verified 05/22/20 13:59 ketorolac tromethamine Allergy Difficulty Verified 09/14/20 10:00 [From Toradol] Swallowing latex Allergy Blisters Verified 09/14/20 10:00 morphine Allergy Difficulty Verified 09/14/20 10:00 Swallowing nabumetone [From Relafen] Allergy Cannot Verified 09/14/20 10:00 Remember sumatriptan [From Imitrex] Allergy Difficulty Verified 09/14/20 10:00 Swallowing sumatriptan succinate Allergy Difficulty Verified 09/14/20 10:00 [From Imitrex] Swallowing Home Meds: Home Meds Aspirin [Aspirin EC] 81 mg PO DAILY 09/14/20 [History] Cholecalciferol (Vitamin D3) [Vitamin D3] 1,000 unit PO DAILY 09/14/20 [History] Clopidogrel Bisulfate [Plavix] 75 mg PO DAILY 09/14/20 [History] Melatonin 10 mg PO BEDTIME 09/14/20 [History] Multivitamin with Minerals [Multiple Vitamin] 1 tab PO DAILY 09/14/20 [History] atorvaSTATin [Lipitor] 40 mg PO DAILY 09/14/20 [History] traMADol [Ultram] 50 mg PO BID 09/14/20 [History] Past Medical History HEENT History: Reports: Impaired Vision, Other (See Below) Other HEENT History: DENTAL ABSCESS Cardiovascular History: Reports: CAD, High Cholesterol, PTCA, Stents Other Cardiovascular History: CAROTID STENTS PLACED Respiratory History: Reports: None Gastrointestinal History: Reports: Gastritis Genitourinary History: Reports: None Other Genitourinary History: bladder pin up 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: hysterectomy Musculoskeletal History: Reports: Arthritis, Back Pain, Chronic, Fibromyalgia Other Musculoskeletal History: "SPINAL SPURS" Neurological History: Reports: Migraines, TIA Other Neuro History: 2012 TIA Psychiatric History: Reports: None Endocrine/Metabolic History: Reports: None Hematologic History: Reports: None Other Hematologic History: none Immunologic History: Reports: None Oncologic (Cancer) History: Reports: None Dermatologic History: Reports: Eczema Other Dermatologic History: none - Infectious Disease History Infectious Disease History: Reports: None - Past Surgical History Head Surgeries/Procedures: Reports: None HEENT Surgical History: Reports: Oral Surgery, Other (See Below) Other HEENT Surgeries/Procedures: EYELID SKIN REMOVED Cardiovascular Surgical History: Reports: Carotid Stents, Coronary Artery Stent Other Cardiovascular Surgeries/Procedures: 1999. Coronary Artery Stent 2019 GI Surgical History: Reports: Appendectomy, Hernia, Abdominal Female Surgical History: Reports: D&C, Hysterectomy, Salpingo-Oophorectomy, Other (See Below) Other Female Surgeries/Procedures: CYSTOSCOPY; BLADDER SURGERY Neurological Surgical History: Reports: None Musculoskeletal Surgical History: Reports: Shoulder Surgery, Other (See Below) Other Musculoskeletal Surgeries/Procedures:: left foot-plates and screws Oncologic Surgical History: Reports: None Dermatological Surgical History: Reports: None Social & Family History - Family History Family Medical History: No Pertinent Family History Cardiac: Reports: CAD, High Cholesterol, Hypertension : Reports: Nephritis Endocrine/Metabolic: Reports: Diabetes, type II - Tobacco Use Tobacco Use Status *Q: Current Every Day Tobacco User Years of Tobacco use: 42 Packs/Tins Daily: 1 - Caffeine Use Caffeine Use: Reports: Coffee - Recreational Drug Use Recreational Drug Use: No - Living Situation & Occupation Living situation: Reports: with Family Occupation: Employed Review of Systems - Review of Systems Review Of Systems: Comprehensive ROS is negative, except as noted in HPI. ED EXAM, GENERAL - Physical Exam Exam: See Below Exam Limited By: No Limitations General Appearance: Alert, WD/WN, No Apparent Distress Throat/Mouth: Normal Inspection, Normal Lips, Normal Voice, No Airway Compromise Head: Atraumatic, Normocephalic Neck: Normal Inspection Respiratory/Chest: No Respiratory Distress Cardiovascular: Regular Rate, Rhythm, No Edema Peripheral Pulses: 2+: Dorsalis Pedis (L), Dorsalis Pedis (R), 3+: Posterior Tibial (L), Posterior Tibial (R) Extremities: Normal Range of Motion, No Pedal Edema, Normal Capillary Refill, Redness (Right midfoot tenderness with increased warmth, mild soft tissue swelling. Dosal midfoot has a tiny lesion that looks consistent with an insect bite or puncute.). No: Joint Swelling Neurological: Alert, Oriented, No Motor/Sensory Deficits Psychiatric: Normal Mood Course - Vital Signs Last Recorded V/S: Last Vital Signs Temp 98.2 F 01/12/21 16:44 Pulse 80 01/12/21 16:44 Resp 18 01/12/21 16:44 BP 81/57 L 01/12/21 16:44 Pulse Ox 95 01/12/21 16:44 - Orders/Labs/Meds Orders: Active Orders 24 hr Category Date Time Status DME for Discharge [COMM] Routine Oth 01/12/21 18:21 Ordered Labs: Laboratory Tests 01/12/21 01/12/21 Range/Units 17:19 17:19 WBC 14.6 H (5.0-10.0) 10^3/uL RBC 4.84 (4.2-5.4) 10^6/uL Hgb 14.6 (12.0-16.0) g/dL Hct 44.4 (37.0-47.0) % MCV 91.7 (80-100) fL MCH 30.2 (27.0-34.0) pg MCHC 32.9 L (33.0-35.0) g/dL Plt Count 294 (150-450) 10^3/uL Neut % (Auto) 76.0 H (42.2-75.2) % Lymph % (Auto) 16.2 L (20.5-50.1) % [place] % (Auto) 5.5 (2-8) % Eos % (Auto) 1.8 (1.0-3.0) % Baso % (Auto) 0.5 (0.0-1.0) % Sodium 141 (136-145) mmol/L Potassium 3.9 (3.5-5.1) mmol/L Chloride 103 (98-107) mmol/L Carbon Dioxide 29 (21-32) mmol/L Anion Gap 12.9 (7-13) mEq/L BUN 12 (7-18) mg/dL Creatinine 0.86 (0.55-1.02) mg/dL Est Cr Clr Drug Dosing 57.82 mL/min Estimated GFR (MDRD) > 60 BUN/Creatinine Ratio 14.0 (No establ ref range) Glucose 88 (70-99) mg/dL Uric Acid 4.5 (2.6-6.0) mg/dL Calcium 8.3 L (8.5-10.1) mg/dL Total Bilirubin 0.8 (0.2-1.0) mg/dL AST 17 (15-37) U/L ALT 28 (14-59) U/L Alkaline Phosphatase 85 (46-116) U/L C-Reactive Protein 0.3 (0.0-0.9) mg/dL Total Protein 7.3 (6.4-8.2) g/dL Albumin 3.8 (3.4-5.0) g/dL Globulin 3.5 Albumin/Globulin Ratio 1.1 Meds: Medications Discontinued Medications Generic Name Dose Route Start Last Admin Trade Name Juan Joséq PRN Reason Stop Dose Admin Cephalexin 500 mg 01/12/21 18:20 Cephalexin 500 Mg Cap PO 01/12/21 18:21 ONETIME ONE Cephalexin Confirm 01/12/21 18:37 Cephalexin 500 Mg Cap Administered 01/12/21 18:38 Dose 3,000 mg .ROUTE .STK-MED ONE Dexamethasone 4 mg 01/12/21 18:20 Dexamethasone 4 Mg Tab PO 01/12/21 18:21 ONETIME ONE - Radiology Interpretation Free Text/Narrative:: [facility] Final Radiology Report Call: [phone] assistance Online chat: [email or web address] Digital Name: AMBAR KRAFT Age: 65Years F Date: 01/12/2021 SSN: -- : 1955 Study: CR FOOT COMP MIN 3V RT Requesting Physician: MILAN MORENO Images: 3 Addl Studies: Provided Clinical History: Right foot pain Contrast: Contrast Medium: Contrast Amount: Contrast Method: CONFIDENTIALITY STATEMENT This report is intended only for use by the referring physician, and only in accordance with law. If you received this in error, call [phone]. Page 1 of 1 PROCEDURE INFORMATION: Exam: XR Right Foot Exam date and time: 01/12/2021 5:05 PM Age: 65 years old Clinical indication: Other: No known trauma; Additional info: Right foot pain TECHNIQUE: Imaging protocol: XR Right foot. Views: 3 or more views. Total images: 3 COMPARISON: No relevant prior studies available. FINDINGS: Bones/joints: Minimal spurring 1st MTP joint. Other scattered minimal degenerative changes. Moderate plantar calcaneal spur. Soft tissues: Normal. IMPRESSION: 1. Scattered degenerative changes most pronounced 1st MTP joint. 2. No acute process. Thank you for allowing us to participate in the care of your patient. Dictated and Authenticated by: Norberto Gallegos MD 01/12/2021 5:35 PM Central Time ([place] & [place]) Departure - Departure Time of Disposition: 18:24 Disposition: Home, Self-Care 01 Condition: Good Clinical Impression: Cellulitis of right foot, Tendinitis of right foot - Discharge Information *PRESCRIPTION DRUG MONITORING PROGRAM REVIEWED*: Not Applicable *COPY OF PRESCRIPTION DRUG MONITORING REPORT IN PATIENT MARSHA: Not Applicable Instructions: Cellulitis, Adult, Tendinitis Referrals: Sanket Sullivan [Primary Care Provider] - Forms: ED Department Discharge Additional Instructions: Rx: Cephalexin 500mg Rx: Dexamethasone 4mg Elevate right foot, moist hot wrap, or Epsom Salts soaks. Use crutches for comfort to minimize weight bearing. Follow up in clinic on Thursday, January 15 for recheck and repeat blood test. Have your clinic doctor repeat the right foot x-ray if not improved in 7 to 10 days. Sepsis Event Note (ED) - Evaluation Sepsis Screening Result: No Definite Risk - Focused Exam Vital Signs: Vital Signs Temp Pulse Resp BP Pulse Ox 01/12/21 16:44 98.2 F 80 18 81/57 L 95 - My Orders Last 24 Hours: My Active Orders 01/12/21 18:21 DME for Discharge [COMM] Routine - Assessment/Plan Last 24 Hours: My Active Orders 01/12/21 18:21 DME for Discharge [COMM] Routine
--- NOTE | 2021-01-12 17:35 | CR ---
PROCEDURE INFORMATION: Exam: XR Right Foot Exam date and time: 01/12/2021 5:05 PM Age: 65 years old Clinical indication: Other: No known trauma; Additional info: Right foot pain TECHNIQUE: Imaging protocol: XR Right foot. Views: 3 or more views. Total images: 3 COMPARISON: No relevant prior studies available. FINDINGS: Bones/joints: Minimal spurring 1st MTP joint. Other scattered minimal degenerative changes. Moderate plantar calcaneal spur. Soft tissues: Normal. IMPRESSION: 1. Scattered degenerative changes most pronounced 1st MTP joint. 2. No acute process.
[2021-01-12 17:43] LABS: ANION GAP 12.9 mEq/L (7-13); CHLORIDE,CL 103 mmol/L (98-107); SODIUM,NA 141 mmol/L (136-145)
[2021-01-12] MEDS ORDERED: Cephalexin 500 MG Cap PO ONE (18:20)
[2021-01-12] MEDS ORDERED: Cephalexin 500 MG Cap ONE (18:37)
== END 2021-01-12 18:38 | disposition home or self-care (01) ==
LOC: DL.ED 16:39
DX: L03.115 Cellulitis of right lower limb (principal); M77.51 Other enthesopathy of right foot and ankle; E78.00 Pure hypercholesterolemia, unspecified; I25.10 Atherosclerotic heart disease of native coronary artery without angina pectoris; Z88.5 Allergy status to narcotic agent; Z88.8 Allergy status to other drugs, medicaments and biological substances; Z91.040 Latex allergy status; Z88.1 Allergy status to other antibiotic agents; Z88.6 Allergy status to analgesic agent; Z95.5 Presence of coronary angioplasty implant and graft; Z79.82 Long term (current) use of aspirin; Z79.02 Long term (current) use of antithrombotics/antiplatelets; Z72.0 Tobacco use
CPT/HCPCS: 36415; 73630-RT; 80053; 84550; 85025; 86140; 99283; A9270-GY; J8540

== ENCOUNTER 2022-03-08 21:52 | Emergency (ER) | payer OTHER ==
[2022-03-08 22:23] VITALS: BP 124/72; PULSE 80
[2022-03-08 23:19] LABS: ANION GAP 9.1 mEq/L (7-13)
== END 2022-03-09 02:31 | disposition left against medical advice (07) ==
LOC: DL.ED 21:52
DX: R07.9 Chest pain, unspecified (principal); I25.10 Atherosclerotic heart disease of native coronary artery without angina pectoris; E78.00 Pure hypercholesterolemia, unspecified; F17.210 Nicotine dependence, cigarettes, uncomplicated; Z86.73 Personal history of transient ischemic attack (TIA), and cerebral infarction without residual deficits; Z88.5 Allergy status to narcotic agent; Z91.040 Latex allergy status; Z88.1 Allergy status to other antibiotic agents; Z88.6 Allergy status to analgesic agent; Z88.8 Allergy status to other drugs, medicaments and biological substances; Z79.82 Long term (current) use of aspirin; Z79.02 Long term (current) use of antithrombotics/antiplatelets
CPT/HCPCS: 36415; 71045; 80053; 84484; 85025; 93005; 99285-25

== ENCOUNTER 2022-06-09 09:42 | Emergency (ER) | payer OTHER ==
[2022-07-04 10:35] LABS: ANION GAP 10.2 mEq/L (7-13); CHLORIDE,CL 103 mmol/L (98-107); ESTIMATED GFR 74 mL/min (>=60); SODIUM,NA 139 mmol/L (136-145)
== END 2022-06-09 11:47 | disposition home or self-care (01) ==
LOC: DL.ED 09:42
DX: K12.2 Cellulitis and abscess of mouth (principal); K05.10 Chronic gingivitis, plaque induced; K02.9 Dental caries, unspecified
CPT/HCPCS: 36415; 71046; 80053; 82150; 83605; 83735; 83880; 84443; 84484; 85025; 85379; 85610; 99283

== ENCOUNTER 2022-06-09 11:47 | Emergency (ER) | payer OTHER | END 2022-06-09 23:57 | disposition home or self-care (01) | LOC: DL.ED 11:47 | DX: R07.9 Chest pain, unspecified (principal); F41.9 Anxiety disorder, unspecified; I10 Essential (primary) hypertension | CPT/HCPCS: 99284 ==

== ENCOUNTER 2022-12-07 09:00 | Emergency (ER) | payer MEDICARE, OTHER ==
[2022-12-07] MEDS ORDERED: Tetracaine HCl/PF 0.5% 4 ML Bottle EYELF ONE (09:23)
[2022-12-07] MEDS ORDERED: Fluorescein 1 MG Ophth Strip EYELF ONE (09:24)
[2022-12-07] MEDS ORDERED: Gentamicin 0.3% Ophth Soln 5 ML Bottle EYELF ONE (09:26)
[2022-12-07 09:37] VITALS: BP 149/85; PULSE 76
== END 2022-12-07 09:49 | disposition home or self-care (01) ==
LOC: DL.ED 09:00
DX: S05.02XA Injury of conjunctiva and corneal abrasion without foreign body, left eye, initial encounter (principal); S05.8X2A Other injuries of left eye and orbit, initial encounter; I25.10 Atherosclerotic heart disease of native coronary artery without angina pectoris; M19.90 Unspecified osteoarthritis, unspecified site; Z86.73 Personal history of transient ischemic attack (TIA), and cerebral infarction without residual deficits; Z79.02 Long term (current) use of antithrombotics/antiplatelets; Z79.82 Long term (current) use of aspirin; Z79.899 Other long term (current) drug therapy; Z95.5 Presence of coronary angioplasty implant and graft; Z88.1 Allergy status to other antibiotic agents; Z88.5 Allergy status to narcotic agent; Z88.6 Allergy status to analgesic agent; Z88.8 Allergy status to other drugs, medicaments and biological substances; Z91.040 Latex allergy status
CPT/HCPCS: 99282; 99283; A9270; J3490

== ENCOUNTER 2025-05-22 13:42 | Emergency (ER) | payer OTHER ==
[2025-05-22] MEDS ORDERED: Sodium Chloride 0.9% 10 ML Syringe FLUSH PRN (13:53)
[2025-05-22 14:00] VITALS: BP 120/70; PULSE 66
[2025-05-22 14:00] LABS: PLATELET COUNT,PLT 269 10^3/uL (150-450); RED BLOOD CELL COUNT 5.18 10^6/uL (4.2-5.4); WHITE BLOOD CELL COUNT,WBC 8.1 10^3/uL (5.0-10.0)
[2025-05-22 14:07] LABS: BASOPHILS PERCENT AUTO 0.2 % (0.0-1.0); EOSINOPHILS PERCENT AUTO 3.7 % (1.0-3.0); LYMPHOCYTES PERCENT AUTO 28.7 % (20.5-50.1); MONOCYTES PERCENT AUTO 6.7 % (2-8); NEUTROPHILS PERCENT AUTO 60.7 % (42.2-75.2)
[2025-05-22 14:15] LABS: INR 0.9 (0.9-1.2)
[2025-05-22 14:27] LABS: A/G RATIO 1.1; ALANINE AMINOTRANSFERASE,ALT 20 U/L (14-59); ASPARTATE AMNIOTRANSFERASE,AST 15 U/L (15-37); BILIRUBIN TOTAL 0.9 mg/dL (0.2-1.0); BLOOD UREA NITROGEN,BUN 10 mg/dL (7-18); CARBON DIOXIDE,CO2 29 mmol/L (21-32); CHLORIDE,CL 102 mmol/L (98-107); CREATININE 0.85 mg/dL (0.55-1.02); GLUCOSE RANDOM 96 mg/dL (70-99); POTASSIUM,K 4.2 mmol/L (3.5-5.1); PROTEIN TOTAL,TP 7.6 g/dL (6.4-8.2); SODIUM,NA 137 mmol/L (136-145)
[2025-05-22 14:28] LABS: ESTIMATED GFR 75 mL/min (>=60)
[2025-05-22 14:31] LABS: EOSINOPHILS PERCENT MAN 6 % (1-3); LYMPHOCYTES PERCENT MAN 31 % (20-50); MONOCYTES PERCENT MAN 4 % (2-8); SEG NEUTROPHILS PERCENT MAN 59 % (42-75)
== END 2025-05-22 14:48 | disposition home or self-care (01) ==
LOC: DL.ED 13:42
DX: M62.830 Muscle spasm of back (principal); I25.10 Atherosclerotic heart disease of native coronary artery without angina pectoris; M19.90 Unspecified osteoarthritis, unspecified site; Z79.899 Other long term (current) drug therapy; Z79.82 Long term (current) use of aspirin; Z88.5 Allergy status to narcotic agent; Z88.6 Allergy status to analgesic agent; Z88.8 Allergy status to other drugs, medicaments and biological substances; Z88.1 Allergy status to other antibiotic agents; Z90.49 Acquired absence of other specified parts of digestive tract; Z90.710 Acquired absence of both cervix and uterus
CPT/HCPCS: 36415; 71045; 80053; 83735; 84484; 85025; 85610; 93005; 93010; 99283; 99285